=== PATIENT | female | born 1945 | race Caucasian/White ===

== ENCOUNTER → 2023-06-20 07:59 | Outpatient (REF) | payer MEDICARE, OTHER, SELFPAY | LOC: RAD 07:59 | PROVIDERS: ATTENDING PHYSICIAN Physical Medicine & Rehabilitation; FAMILY PHYSICIAN Family Medicine | DX: Z95.0 Presence of cardiac pacemaker (principal) | CPT/HCPCS: 71046 ==

== ENCOUNTER → 2023-07-25 13:27 | Outpatient (REF) | payer MEDICARE, OTHER, SELFPAY | LOC: MRI 13:27 | PROVIDERS: ATTENDING PHYSICIAN Student in an Organized Health Care Education/Training Program; FAMILY PHYSICIAN Family Medicine | DX: M48.061 Spinal stenosis, lumbar region without neurogenic claudication (principal); M51.27 Other intervertebral disc displacement, lumbosacral region; M54.16 Radiculopathy, lumbar region | CPT/HCPCS: 72148 ==

== ENCOUNTER → 2023-08-19 07:06 | Outpatient (REF) | payer MEDICARE, OTHER, SELFPAY ==
[2023-08-19 07:48] LABS: Urine Albumin Negative (Neg - Trace); Urine Bilirubin Negative (Negative); Urine Character Clear (Clear); Urine Color Yellow; Urine Glucose Negative (Negative); Urine Ketone Negative (Negative); Urine Leukocyte 1+ (Negative); Urine Nitrite Negative (Negative); Urine Occult Blood Negative (Negative); Urine Urobilinogen Negative (Neg - 1+)
[2023-08-19 08:13] LABS: Urine Red Blood Cell 0-2 /HPF (0-2)
[2023-08-19 08:24] LABS: Blood Urea Nitrogen 22 mg/dl (7-17); Calcium 9.8 mg/dl (8.4-10.2); Carbon Dioxide 28 mmol/L (22-30); Chloride 106 mmol/L (98-107); Glucose 94 mg/dl (70-99); Potassium 4.3 mmol/L (3.5-5.1); Sodium 138 mmol/L (135-145); eGFR > 60.00
[2023-08-19 09:08] LABS: Protein/creatinine Ratio 0.1; Urine Protein 6 mg/dl
== END ==
LOC: REG 07:06
PROVIDERS: ATTENDING PHYSICIAN Specialist; FAMILY PHYSICIAN Family Medicine
DX: I12.9 Hypertensive chronic kidney disease with stage 1 through stage 4 chronic kidney disease, or unspecified chronic kidney disease (principal); I10 Essential (primary) hypertension; E78.2 Mixed hyperlipidemia; R80.9 Proteinuria, unspecified
CPT/HCPCS: 36415; 80048; 81003; 81015; 82570; 84156

== ENCOUNTER → 2023-09-05 07:28 | Outpatient (REF) | payer MEDICARE, OTHER, SELFPAY ==
[2023-09-05 08:08] LABS: % Basophils 1.4 % (0-2); % Eosinophils 2.9 % (0-6); % Immature Granulocytes 0.4 % (0-0.5); % Monocytes 11.5 % (1.7-9.3); % Neutrophils 60.8 % (42.2-75.2); Absolute Basophils 0.1 10^3/uL (0-0.2); Absolute Eosinophils 0.1 10^3/uL (0-0.7); Absolute Lymphocytes 1.1 10^3/uL (1.2-3.4); Absolute Monocytes 0.6 10^3/uL (0.1-0.6); Hematocrit 42.2 % (37.0-47.0); Hemoglobin 13.7 g/dL (12.0-16.0); Mean Corp Hgb Conc. 32.5 g/dL (33.0-37.0); Mean Corpuscular Hgb 31.1 pg (27.0-31.0); Mean Corpuscular Volume 95.7 fL (81.0-99.0); Mean Platelet Volume 9.8 fL (7.4-10.4); Nucleated Red Blood Cells % 0 %; Platelet Count 245 10^3/uL (130-400); Red Blood Cell Count 4.41 10^6/uL (4.20-5.40); Red Cell Dist. Width 13.5 % (11.5-14.5); White Blood Cell Count 4.9 10^3/uL (4.8-10.8)
[2023-09-05 08:31] LABS: Lactic Acid 0.7 mmol/L (0.7-2.0)
[2023-09-05 09:18] LABS: ALT (SGPT) 24 U/L (0-35); AST (SGOT) 30 U/L (14-36); Albumin 4.2 g/dl (3.5-5.0); Alkaline Phosphatase 69 U/L (38-126); Blood Urea Nitrogen 23 mg/dl (7-17); Calcium 9.4 mg/dl (8.4-10.2); Carbon Dioxide 31 mmol/L (22-30); Chloride 103 mmol/L (98-107); Glucose 80 mg/dl (70-99); LDH 228 U/L (120-246); Potassium 4.2 mmol/L (3.5-5.1); Sodium 137 mmol/L (135-145); Total Bilirubin 0.5 mg/dl (0.2-1.3); Total Protein 6.4 g/dl (6.3-8.2); Uric Acid 5.3 mg/dl (2.5-6.2); eGFR > 60.00
[2023-09-05 14:21] LABS: IgA 203 mg/dl (70-400); IgG 561 mg/dl (700-1600); IgM 84 mg/dl (40-230)
== END ==
LOC: REG 07:28
PROVIDERS: ATTENDING PHYSICIAN Internal Medicine; FAMILY PHYSICIAN Family Medicine
DX: C91.01 Acute lymphoblastic leukemia, in remission (principal)
CPT/HCPCS: 36415; 80053; 82784; 83605; 83615; 84550; 85025

== ENCOUNTER → 2023-11-15 07:15 | Outpatient (REF) | payer MEDICARE, OTHER, SELFPAY ==
[2023-11-15 08:47] LABS: Urine Albumin 1+ (Neg - Trace); Urine Bilirubin Negative (Negative); Urine Character Very Cloudy (Clear); Urine Color Yellow; Urine Glucose Negative (Negative); Urine Ketone Negative (Negative); Urine Leukocyte 2+ (Negative); Urine Nitrite Negative (Negative); Urine Occult Blood 4+ (Negative); Urine Urobilinogen Negative (Neg - 1+)
[2023-11-15 09:08] LABS: Urine Bacteria Moderate (Negative); Urine Red Blood Cell 50-60 /HPF (0-2); Urine White Cell 80-90 /HPF (0-5)
== END ==
LOC: REG 07:15
PROVIDERS: ATTENDING PHYSICIAN Family Medicine
DX: R31.0 Gross hematuria (principal)
CPT/HCPCS: 81003; 81015; 87077; 87086; 87186

== ENCOUNTER → 2023-12-18 07:14 | Outpatient (REF) | payer MEDICARE, OTHER, SELFPAY | LOC: RAD 07:14 | PROVIDERS: ATTENDING PHYSICIAN Internal Medicine Critical Care Medicine; FAMILY PHYSICIAN Family Medicine | DX: R93.89 Abnormal findings on diagnostic imaging of other specified body structures (principal) | CPT/HCPCS: 71250 ==

== ENCOUNTER → 2024-02-15 07:06 | Outpatient (REF) | payer MEDICARE, OTHER, SELFPAY ==
[2024-02-15 08:18] LABS: % Basophils 1.5 % (0-2); % Eosinophils 2.8 % (0-6); % Immature Granulocytes 0.2 % (0-0.5); % Lymphocytes 26.9 % (20.5-51.1); % Monocytes 12.7 % (1.7-9.3); % Neutrophils 55.9 % (42.2-75.2); Absolute Basophils 0.1 10^3/uL (0-0.2); Absolute Eosinophils 0.1 10^3/uL (0-0.7); Absolute Lymphocytes 1.2 10^3/uL (1.2-3.4); Absolute Monocytes 0.6 10^3/uL (0.1-0.6); Absolute Neutrophils 2.6 10^3/uL (1.4-6.5); Hematocrit 41.5 % (37.0-47.0); Hemoglobin 13.9 g/dL (12.0-16.0); Mean Corp Hgb Conc. 33.5 g/dL (33.0-37.0); Mean Corpuscular Hgb 31.4 pg (27.0-31.0); Mean Corpuscular Volume 93.7 fL (81.0-99.0); Mean Platelet Volume 9.8 fL (7.4-10.4); Nucleated Red Blood Cells % 0 %; Platelet Count 275 10^3/uL (130-400); Red Blood Cell Count 4.43 10^6/uL (4.20-5.40); Red Cell Dist. Width 13.7 % (11.5-14.5); Urine Albumin Negative (Neg - Trace); Urine Bilirubin Negative (Negative); Urine Character Clear (Clear); Urine Color Yellow; Urine Glucose Negative (Negative); Urine Ketone Negative (Negative); Urine Leukocyte 1+ (Negative); Urine Nitrite Negative (Negative); Urine Occult Blood Negative (Negative); Urine Urobilinogen Negative (Neg - 1+); White Blood Cell Count 4.6 10^3/uL (4.8-10.8)
[2024-02-15 08:37] LABS: Urine Red Blood Cell 0-2 /HPF (0-2)
[2024-02-15 08:38] LABS: Urine Squamous Cell 16-20 /LPF (Few)
[2024-02-15 08:42] LABS: IgA 198 mg/dl (70-400); IgG 549 mg/dl (700-1600); IgM 107 mg/dl (40-230)
[2024-02-15 08:45] LABS: ALT (SGPT) 23 U/L (0-35); AST (SGOT) 27 U/L (14-36); Albumin 4.3 g/dl (3.5-5.0); Alkaline Phosphatase 73 U/L (38-126); Blood Urea Nitrogen 25 mg/dl (7-17); Carbon Dioxide 32 mmol/L (22-30); Chloride 102 mmol/L (98-107); Glucose 100 mg/dl (70-99); HDL Cholesterol 85 mg/dl; LDH 231 U/L (120-246); LDL Cholesterol, Calculated 129 mg/dl; Potassium 4.6 mmol/L (3.5-5.1); Sodium 142 mmol/L (135-145); Total Bilirubin 0.4 mg/dl (0.2-1.3); Total Cholesterol 230 mg/dl (50-199); Total Protein 6.4 g/dl (6.3-8.2); Triglyceride 83 mg/dl (10-149); Uric Acid 4.3 mg/dl (2.5-6.2); Very Low Density Lipoprotein 16 mg/dl (0-30); eGFR 57.31
[2024-02-15 10:45] LABS: TSH 1.67 uIU/ml (0.47-4.68)
== END ==
LOC: REG 07:06
PROVIDERS: ATTENDING PHYSICIAN Nurse Practitioner Family; FAMILY PHYSICIAN Family Medicine
DX: I12.9 Hypertensive chronic kidney disease with stage 1 through stage 4 chronic kidney disease, or unspecified chronic kidney disease (principal); N04.5 Nephrotic syndrome with diffuse mesangiocapillary glomerulonephritis; N18.31 Chronic kidney disease, stage 3a; I49.5 Sick sinus syndrome; Z95.0 Presence of cardiac pacemaker; E04.1 Nontoxic single thyroid nodule; E78.2 Mixed hyperlipidemia; H35.81 Retinal edema; C91.10 Chronic lymphocytic leukemia of B-cell type not having achieved remission; M17.11 Unilateral primary osteoarthritis, right knee; Z79.01 Long term (current) use of anticoagulants; I48.0 Paroxysmal atrial fibrillation; N39.0 Urinary tract infection, site not specified
CPT/HCPCS: 36415; 80053; 80061; 81003; 81015; 82784; 83615; 84443; 84550; 85025; 87086

== ENCOUNTER → 2024-07-30 09:38 | Outpatient (REF) | payer MEDICARE, OTHER, SELFPAY | LOC: RAD 09:38 | PROVIDERS: ATTENDING PHYSICIAN Obstetrics & Gynecology Gynecology; FAMILY PHYSICIAN Family Medicine | DX: N83.209 Unspecified ovarian cyst, unspecified side (principal) | CPT/HCPCS: 76830; 76856 ==

== ENCOUNTER → 2024-08-19 08:12 | Outpatient (REF) | payer MEDICARE, OTHER, SELFPAY ==
[2024-08-19 09:11] LABS: Urine Albumin Negative (Neg - Trace); Urine Bilirubin Negative (Negative); Urine Character Clear (Clear); Urine Color Yellow; Urine Glucose Negative (Negative); Urine Ketone Negative (Negative); Urine Leukocyte 1+ (Negative); Urine Nitrite Negative (Negative); Urine Occult Blood Negative (Negative); Urine Specific Gravity 1.015 (<1.030); Urine Urobilinogen Negative (Neg - 1+)
[2024-08-19 09:18] LABS: Blood Urea Nitrogen 23 mg/dl (7-17); Calcium 9.5 mg/dl (8.4-10.2); Carbon Dioxide 34 mmol/L (22-30); Chloride 107 mmol/L (98-107); Glucose 93 mg/dl (70-99); Potassium 4.4 mmol/L (3.5-5.1); Sodium 146 mmol/L (135-145); eGFR > 60.00
[2024-08-19 11:28] LABS: Urine Amorphous Seen; Urine Red Blood Cell 0-2 /HPF (0-2); Urine White Cell 0-2 /HPF (0-5)
[2024-08-19 14:12] LABS: Urine Protein < 5 mg/dl
== END ==
LOC: REG 08:12
PROVIDERS: ATTENDING PHYSICIAN Specialist
DX: I12.9 Hypertensive chronic kidney disease with stage 1 through stage 4 chronic kidney disease, or unspecified chronic kidney disease (principal); I10 Essential (primary) hypertension; E78.2 Mixed hyperlipidemia
CPT/HCPCS: 36415; 80048; 81003; 81015; 82570; 84156

== ENCOUNTER → 2024-10-16 14:23 | Outpatient (REF) | payer MEDICARE, OTHER, SELFPAY | LOC: WDC 14:23 | PROVIDERS: ATTENDING PHYSICIAN Obstetrics & Gynecology Gynecology; FAMILY PHYSICIAN Family Medicine | DX: Z12.31 Encounter for screening mammogram for malignant neoplasm of breast (principal) | CPT/HCPCS: 77063; 77067 ==

== ENCOUNTER 2024-10-28 09:38 | Inpatient (IN) | payer MEDICARE, OTHER, SELFPAY ==
--- NOTE | 2024-10-16 14:05 | CM ---
Addendum entered by Wendi Griffin RN 10/29/24 09:06:
CM reviewed medical records. Plan continues for outpatient PT.
PLAN: home with outpatient PT.
Original Note:
CM reviewed medical records. CM spoke with patient via live telephone. Patient does not have a histoyr of , SNF or DME. Patient has purchased her walker, raised toilet ignacia and cane. Patient is active with her PCP. Patient uses [facility] for medication
services.
Patient's will provide support post operatively.
Patient has made her outpatient PT appointment fo 10/31.
CM will remain available as needed.
[2024-10-18 14:12] VITALS: BMI 27.1
[2024-10-18 14:39] LABS: Hematocrit 40.9 % (37.0-47.0); Hemoglobin 13.4 g/dL (12.0-16.0); Mean Corp Hgb Conc. 32.8 g/dL (33.0-37.0); Mean Corpuscular Hgb 30.2 pg (27.0-31.0); Mean Corpuscular Volume 92.3 fL (81.0-99.0); Mean Platelet Volume 10.7 fL (7.4-10.4); Platelet Count 215 10^3/uL (130-400); Red Blood Cell Count 4.43 10^6/uL (4.20-5.40); Red Cell Dist. Width 14.5 % (11.5-14.5); White Blood Cell Count 5.7 10^3/uL (4.8-10.8)
[2024-10-18 15:17] LABS: ALT (SGPT) 22 U/L (0-35); AST (SGOT) 27 U/L (14-36); Albumin 4.2 g/dl (3.5-5.0); Alkaline Phosphatase 70 U/L (38-126); Blood Urea Nitrogen 26 mg/dl (7-17); Calcium 9.4 mg/dl (8.4-10.2); Carbon Dioxide 26 mmol/L (22-30); Chloride 109 mmol/L (98-107); Estimated Creatinine Clearance 42 ml/min; Glucose 118 mg/dl (70-99); Potassium 4.1 mmol/L (3.5-5.1); Sodium 142 mmol/L (135-145); Total Bilirubin 0.5 mg/dl (0.2-1.3); Total Protein 6.3 g/dl (6.3-8.2); eGFR 56.95
[2024-10-18 17:28] VITALS: BMI 27.1
[2024-10-19 10:12] LABS: Glycohemoglobin (HgbA1c) 5.5 % (4.0-5.6)
[2024-10-28] VITALS (13 sets, daily range): BP systolic 109–153; BP diastolic 54–92; PULSE 61; O2SAT 97; BMI 27.1
--- NOTE | 2024-10-28 07:59 | W.PREADMORTH ---
Ortho Preadmission Testing
-
The patient came in for her pre-operative testing and H&P on 10/18.
She is scheduled for a R TKA today.
She reported a recent flare-up of her right lower extremity dermatitis for which she is using topical Clobetasol.
Her RLE did not look concerning in my opinion; however, the patient did mention she was seeing her child day care teacher, Rosemarie Macedo PA-C, for reassurance prior to surgery.
Given this, she was provided with a clearance form with both my fax and [facility] fax number.
She was seen by dermatology on , 10/24.
In the OV notes, Rosemarie Macedo notes that her dermatitis is improving with Clobetasol.
The patient was advised to continue this and POP hose stockings.
Rosemarie Macedo did sign the patient's clearance form; however, she failed to check off that the patient was cleared for surgery.
Multiple phone calls were made to the patient's dermatology office on Monday, 10/25, only to find out Urszula was not in the office Monday or Monday.
Discussed with Dr. Beltran. Given things are improving, we will likely proceed as planned.
Dr. Beltran to exam the patient's right lower extremity today prior to surgery.
[2024-10-28] MEDS: MOBIC 15 MG PO (11:25)
[2024-10-28] MEDS: TYLENOL 650 MG PO ×4 (11:25→23:48)
[2024-10-28] MEDS: NORMOSOL-R/PLASMALYTE-A 1000 IV ×2 (11:40→15:45)
[2024-10-28] MEDS: VANCOCIN 200 IV ×2 (11:41→23:47)
--- NOTE | 2024-10-28 12:42 | W.PN.UPDATE ---
Update Note
Progress Note Update
R knee OA s/p R TKA w/ Dr Beltran 10/28/24
DVT prophylaxis - Eliquis as modified dosing, b/l venous foot pumps
- Home dosing of Eliquis to be resumed POD 3 if remaining hemodynamically stable
HTN - monitor BP
PAF
PSVT
Tachycardia-bradycardia syndrome, status post PPM implant 2021
- Monitor on tele
- Continue on Diltiazem
- Eliquis as stated above
Mild BECCA, noncompliant with device - monitor O2
- IS
- Add supplemental O2 HS
Mild renal insufficiency per pre-operative labs - minimize nephrotoxins
GERD - continue PPI therapy
Chemo-induced peripheral neuropathy - add Gabapentin HS
Iron deficiency anemia, status post IV iron infusions - non-invasive hgb in AM
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
- Will Rx Cefadroxil upon d/c
MRSA positive nasal swab 2021 - IV Vanco in addition to IV Ancef for joint prophylaxis
- Repeat MRSA swab today to hopefully clear patient of MRSA
- Nasal Bactroban to be continued 2 weeks post-op as incision heals
Hypercholesterolemia
Pulmonary nodules
Remote diverticulitis
Migraines
Lumbar stenosis
Thyroid nodule
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
Skin cancer, status post Mohs
Rosacea
History of recurrent UTIs
Right eye geographic atrophy
Osteopenia
Depression
Daily alcohol, 1 glass of wine nightly
[2024-10-28] MEDS: ROXICODONE 5 MG PO ×3 (15:00→23:53)
--- NOTE | 2024-10-28 15:45 | PTCARENOTE ---
Pt received from the PACU via bed. Transport was w/o incident. Pt denies pain or nausea. VSS, pt is afebrile. Pt's right knee w/ antibacterial dressing intact w/ scant amount of drainage. Pt instructed on plan of care. Pt verbalized understanding of
instructions. Call long is within reach.
[2024-10-28] MEDS: PROTONIX PO (16:00)
[2024-10-28] MEDS: VITAMIN D3 (cholecalciferol) PO (16:00)
[2024-10-28] MEDS: DECADRON 4 MG PO (20:13)
[2024-10-28] MEDS: CLOBETASOL PROPIONATE 0.05% CREAM 1 APPLIC TOPICAL (20:13)
[2024-10-28] MEDS: SENOKOT 17.2 MG PO (20:13)
[2024-10-28] MEDS: ELIQUIS 2.5 MG PO (20:13)
[2024-10-28] MEDS: BACTROBAN 2% OINTMENT 1 APPLIC NASAL (20:13)
[2024-10-28] MEDS: COLACE 100 MG PO (20:13)
[2024-10-28] MEDS: ANCEF 5 IV (20:14)
[2024-10-28] MEDS: NEURONTIN 300 MG PO (21:37)
[2024-10-28] MEDS: SINGULAIR 10 MG PO (21:37)
[2024-10-29 03:00] VITALS: BP 112/58
[2024-10-29] MEDS: ANCEF 5 IV (04:07)
[2024-10-29] MEDS: TYLENOL 650 MG PO ×2 (04:50→08:56)
[2024-10-29] MEDS: ROXICODONE 5 MG PO (06:23)
[2024-10-29 07:45] VITALS: BP 97/66
--- NOTE | 2024-10-29 08:47 | W.PN.ORTHO ---
Today's Communication / Plan
-
Await PT and OT.
D/c later today if remaining clinically stable.
Assessment
.
Distal Motor Intact: Yes
Dressing:
Scant areas of old incisional bleeding.
Assessment:
R knee OA s/p R TKA w/ Dr Beltran 10/28/24
DVT prophylaxis - Eliquis as modified dosing, b/l venous foot pumps
- Home dosing of Eliquis to be resumed POD 3 if remaining hemodynamically stable
HTN - BP soft this AM but overall stable - pt asymptomatic
- Will give Midodrine x1 now
- Will hold Diltiazem for now but can give later if BP improves
- Encouraged adequate hydration, TEDs, and minimizing opioids for BP stabilization upon d/c
PAF
PSVT
Tachycardia-bradycardia syndrome, status post PPM implant 2021
- Rhythm stable on tele
- Diltiazem as stated above
- Eliquis as stated above
Mild BECCA, noncompliant with device - O2 stable on RA
- IS
- Added supplemental O2 HS
Mild renal insufficiency per pre-operative labs - minimize nephrotoxins
GERD - continue PPI therapy
Chemo-induced peripheral neuropathy - added Gabapentin HS
Iron deficiency anemia, status post IV iron infusions - non-invasive hgb 11.5.
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
- Will Rx Cefadroxil upon d/c
MRSA positive nasal swab 2021 - IV Vanco in addition to IV Ancef for joint prophylaxis
- Nasal Bactroban to be continued 2 weeks post-op as incision heals
- Repeat MRSA swab pending prior to d/c
Hypercholesterolemia
Pulmonary nodules
Remote diverticulitis
Migraines
Lumbar stenosis
Thyroid nodule
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
Skin cancer, status post Mohs
Rosacea
History of recurrent UTIs
Right eye geographic atrophy
Osteopenia
Depression
Daily alcohol, 1 glass of wine nightly
Plan
.
Surgery / Date: R TKA w/ Dr Beltran 10/28/24
DVT Prophylaxis: Other (Eliquis )
Activity:
Out of bed.
PT/OT
Discharge Plan: Home w/ Outpatient PT
Subjective
.
.:
Patient resting comfortably in bed.
R knee pain tolerable w/ current pain meds.
Denies any new significant complaints.
Eager for potential d/c today.
Vital Signs and Labs
.
Vital Signs and Labs:
Lab Results
10/18/24 12:52
10/18/24 12:52
Temp Pulse Resp BP Pulse Ox
98.7 F 65 16 97/66 95
10/29/24 07:45 10/29/24 07:45 10/29/24 07:45 10/29/24 07:45 10/29/24 07:45
Non-invasive Hgb result: 11.5
Physical Exam
-
HEENT: No pallor, cyanosis, or jaundice. Throat clear.
NECK: Supple. No JVD.
RESPIRATORY: Lungs clear to auscultation.
CVS: S1, S2 normal. RRR.�+PPM.
ABDOMEN: Soft, non-tender. No distension.
EXTREMITIES: Expected post-surgical R knee edema. Strength equal, no calf pain with palpation/dorsiflexion. Calves soft.
METAL MODEL BUILDER: AOx3. No focal deficits. acquisitions analyst grossly intact
[2024-10-29] MEDS: BACTROBAN 2% OINTMENT 1 APPLIC NASAL (08:55)
[2024-10-29] MEDS: PROTONIX 40 MG PO (08:55)
[2024-10-29] MEDS: COLACE 100 MG PO (08:55)
[2024-10-29] MEDS: ELIQUIS 2.5 MG PO (08:55)
[2024-10-29] MEDS: VITAMIN D3 (cholecalciferol) 25 MCG PO (08:56)
[2024-10-29] MEDS: CELEXA 20 MG PO (08:56)
[2024-10-29] MEDS: SENOKOT 17.2 MG PO (08:56)
[2024-10-29] MEDS: CLOBETASOL PROPIONATE 0.05% CREAM 1 APPLIC TOPICAL (08:56)
[2024-10-29] MEDS: DECADRON 4 MG PO (08:57)
--- NOTE | 2024-10-29 09:03 | W.DS.TRANS ---
DC Summary - Lawyer Criminal
-
Discharge Instructions:
Discharge Diagnosis/Procedures R knee OA s/p R TKA w/ Dr Beltran 10/28/24
Diet Regular
Additional Diets Adequate hydration, minimize opioids, and wear
TEDs stockings to prevent low blood pressure/
dizziness.
Activity As tolerated,With Walker
Driving Restrictions Not until seen by your Dr
Bathing Restrictions OK to Shower
Other Services PT
Wound Care Dressing to be removed 1 week post-surgery.
Heidrick to be removed at 2 week follow-up with
surgeon's office.
Instructions:
Stand-Alone Forms: Total Hip/Knee Replacement D/C
Changes to Home Medications: Yes
Discharge Medications:
DC Medications w/original date entered in [employer]
citalopram 20 mg tablet 20 mg PO Q48H Depression 11/11/16
montelukast 10 mg tablet 10 mg PO HS Allergies 11/11/16
fluticasone propionate 50 mcg/actuation nasal spray,suspension (Flonase Allergy Relief) 1 spray intranasal DAILY Allergies 01/06/22
omeprazole 20 mg tablet,delayed release 20 mg PO DAILY Gastrointestinal Issue 01/06/22
inclisiran 284 mg/1.5 mL subcutaneous syringe (Leqvio) 284 mg SC [id number] High Cholesterol 06/13/22
aflibercept-ayyh 2 mg/0.05 mL intravitreal syringe (Pavblu) 2 mg intravitreal Q5W Eye Condition 10/16/24
alcaftadine 0.25 % eye drops 1 drp ophthalmic (eye) DAILY PRN allergies 10/16/24
apixaban 5 mg tablet (Eliquis) 5 mg PO BID Blood Clot Prevention/Tx 10/16/24
Held on 10/29/24. Instructions: Resume on 10/31/24.
cholecalciferol (vitamin D3) 25 mcg (1,000 unit) tablet (Vitamin D3) 25 mcg PO DAILY Supplement 10/16/24
cranberry 500 mg capsule 500 mg PO DAILY Supplement 10/16/24
diltiazem HCl 180 mg capsule,24 hr,extended release 180 mg PO DAILY Blood Pressure 10/16/24
pyridoxine (vitamin B6) 100 mg tablet (Vitamin B-6) 100 mg PO DAILY Supplement 10/16/24
mupirocin 2 % topical ointment 1 applic intranasal BID #1 tube 10/18/24
Saccharomyces boulardii 250 mg capsule (Florastor) 250 mg PO DAILY #7 caps 10/29/24
acetaminophen 650 mg tablet,extended release (Tylenol 8 Hour) 1,300 mg (2 x 650 mg) PO Q8H #60 tabs 10/29/24
apixaban 2.5 mg tablet (Eliquis) 2.5 mg PO BID #3 tabs 10/29/24
cefadroxil 500 mg capsule 500 mg PO DAILY #7 caps 10/29/24
clobetasol 0.05 % topical cream 1 applic topical BID right leg dermatitis #15 grams 10/29/24
dexamethasone 4 mg tablet 4 mg PO BID Anti-inflammatory #5 tabs 10/29/24
docusate sodium 100 mg capsule 100 mg PO BID #30 caps 10/29/24
gabapentin 300 mg capsule 300 mg PO HS neuropathic pain/sleep #10 caps 10/29/24
oxycodone 5 mg tablet 5 - 10 mg (1 - 2 x 5 mg) PO Q6H PRN moderate-severe pain #30 tabs 10/29/24
prochlorperazine maleate 5 mg tablet 5 mg PO Q8HPRN PRN nausea/vomiting #30 tabs 10/29/24
sennosides 8.6 mg tablet (So-john) 17.2 mg (2 x 8.6 mg) PO BID #30 tabs 10/29/24
Home Medication Changes
Saccharomyces boulardii 250 mg capsule (Florastor) 250 mg PO DAILY #7 caps 10/29/24
acetaminophen 650 mg tablet,extended release (Tylenol 8 Hour) 1,300 mg (2 x 650 mg) PO Q8H #60 tabs 10/29/24
apixaban 2.5 mg tablet (Eliquis) 2.5 mg PO BID #3 tabs 10/29/24 - until POD 3
cefadroxil 500 mg capsule 500 mg PO DAILY #7 caps 10/29/24
clobetasol 0.05 % topical cream 1 applic topical BID right leg dermatitis #15 grams 10/29/24
dexamethasone 4 mg tablet 4 mg PO BID Anti-inflammatory #5 tabs 10/29/24
docusate sodium 100 mg capsule 100 mg PO BID #30 caps 10/29/24
gabapentin 300 mg capsule 300 mg PO HS neuropathic pain/sleep #10 caps 10/29/24
oxycodone 5 mg tablet 5 - 10 mg (1 - 2 x 5 mg) PO Q6H PRN moderate-severe pain #30 tabs 10/29/24
prochlorperazine maleate 5 mg tablet 5 mg PO Q8HPRN PRN nausea/vomiting #30 tabs 10/29/24
sennosides 8.6 mg tablet (So-john) 17.2 mg (2 x 8.6 mg) PO BID #30 tabs 10/29/24
Pending Results: Yes (MRSA nasal swab)
[2024-10-29] MEDS: ProAmatine 5 MG PO (09:13)
[2024-10-29 09:49] VITALS: BP 116/60; BP 124/62; PULSE 68
[2024-10-29 10:19] VITALS: BP 118/53; PULSE 61; O2SAT 97
[2024-10-29 11:12] VITALS: BP 115/68
--- NOTE | 2024-10-30 10:15 | CM ---
CM received call from patient with questions regarding her medications.
== END 2024-10-29 12:01 | disposition home or self-care (01) | DRG 470 ==
LOC: 2 SOUTH 09:38
PROVIDERS: ADMITTING PHYSICIAN Specialist; FAMILY PHYSICIAN Family Medicine; REFERRING PHYSICIAN Internal Medicine
PROC: 0SRC0J9 Replacement of Right Knee Joint with Synthetic Substitute, Cemented, Open Approach (ICD-10-PCS; 2024-10-28)
DX: M17.11 Unilateral primary osteoarthritis, right knee (principal); C91.11 Chronic lymphocytic leukemia of B-cell type in remission; I10 Essential (primary) hypertension; Z95.0 Presence of cardiac pacemaker; I48.0 Paroxysmal atrial fibrillation; I49.5 Sick sinus syndrome; G47.33 Obstructive sleep apnea (adult) (pediatric); Z91.199 Patient's noncompliance with other medical treatment and regimen due to unspecified reason; D50.9 Iron deficiency anemia, unspecified; Z85.828 Personal history of other malignant neoplasm of skin; E78.00 Pure hypercholesterolemia, unspecified; F32.A Depression, unspecified; G43.909 Migraine, unspecified, not intractable, without status migrainosus; K21.9 Gastro-esophageal reflux disease without esophagitis; L71.9 Rosacea, unspecified; M48.061 Spinal stenosis, lumbar region without neurogenic claudication; M85.80 Other specified disorders of bone density and structure, unspecified site; Z79.01 Long term (current) use of anticoagulants; Z87.440 Personal history of urinary (tract) infections; Z98.41 Cataract extraction status, right eye; Z98.42 Cataract extraction status, left eye
CPT/HCPCS: 36415; 73560; 80053; 83036; 85027; 87070; 97110; 97116; 97162; 97166; 97530; 97535; C1713; C1776